=== PATIENT | male | born 1995 | race Caucasian/White ===

== ENCOUNTER 2024-02-23 16:16 | Outpatient (CLI) | payer OTHER ==
[~2024-02-23 16:16] MED LIST: GADOTERATE MEGLUMINE 10 MMOL/20 ML VIAL ONE
[2024-02-23] MEDS: GADOTERATE MEGLUMINE 10 MMOL/20 ML VIAL IVP ONE (17:27)
--- NOTE | 2024-02-24 11:00 | MRI Report ---
PROCEDURE: Brain W/WO INDICATIONS: DIZZINESS TECHNIQUE: Multiplanar multisequential MR images of the brain were obtained before and after intrave nous contrast administration. COMPARISON: None. FINDINGS: CSF spaces: Basal cisterns are patent. No extra-axial fluid collections. Ventricles are normal in size and shape. Brain: No midline shift. No intracranial bleeds or masses. No abnormal intracranial enhancement. The brainstem appears normal. Diffusion-weighted images demonstrate no acute infarct. Normal intrav ascular flow voids are present. Skull and face: Calvarial marrow is normal in signal. Orbits appear normal. Sinuses: Sinuses and mastoids appear clear. IMPRESSION: Normal MRI of the brain with and without contrast Reviewed by: Isidro Rosario MD on 02/24/2024 9:58 AM ARLYN Approved by: Isidro Rosario MD on 02/24/2024 9:58 AM ARLYN Station ID: [id number]
== END 2024-02-23 16:17 | disposition home or self-care (01) ==
LOC: DI 16:16
PROVIDERS: ATTEND Student in an Organized Health Care Education/Training Program
DX: R42 Dizziness and giddiness (principal); H93.11 Tinnitus, right ear
CPT/HCPCS: 70553; A9575